=== PATIENT | male | born 1955 | race Asian ===

== ENCOUNTER 2016-06-03 23:39 | Inpatient (IN) | payer MEDICAID ==
[~2016-06-03] VITALS: Ht 167.6 cm; Wt 80.4 kg
[2016-06-03 23:40] VITALS: BP 162/72; PULSE 60; RESP 16; TEMP 97.8; O2SAT 98
--- NOTE | 2016-06-03 23:40 | NUR ---
ER Dr. Aguilar at bedside examining patient.
--- NOTE | 2016-06-03 23:40 | NUR ---
Placed in room 3 . Placed on registered nurse cardiac telemetry, blood pressure machine and pulse oximeter. To gown for exam. Side rails up. Report given to Joan DHILLON.
--- NOTE | 2016-06-03 23:45 | NUR ---
Pt brought in by in stable condition. Per , pt has been c/o dizziness since 1999 and told her he was going to bed. Per , pt was asleep and fell off the bed. Pt present very lethargic but able to answer questions appropriately. +n -v/d -chest pain -sob. Placed pt on cardiac rehab nurse. No acute distress noted at this time, will continue to monitor
[2016-06-04] MEDS ORDERED: ONDANSETRON HCL 4 MG/2 ML VIAL IVP ONE
[2016-06-04] MEDS ORDERED: MECLIZINE HCL 25 MG TABLET (ANITVERT) PO ONE
--- NOTE | 2016-06-04 00:17 | NUR ---
Spoke w/pt son and he stated that pt has been "really out of it". Pt's son stated that he noticed left sided facial droop. I assess neuro checks and pt's neuro is intact. Dr. Aguilar made aware and no new orders at this time.
[2016-06-04 00:21] LABS: BASOPHILS % (AUTO) 0.2 % (0.0-2.0); EOSINOPHILS # (AUTO) 0.3 K/uL (0.0-0.4); HEMATOCRIT 40.7 % (36-54); HEMOGLOBIN 13.8 g/dL (14.0-18.0); LYMPHOCYTES # (AUTO) 4.1 K/uL (1.0-5.5); LYMPHOCYTES % (AUTO) 36.8 % (20.5-51.5); MEAN CORPUSCULAR HEMOGLOBIN 29 pg (27-31); MEAN CORPUSCULAR HGB CONC 34 % (32-36); MEAN CORPUSCULAR VOLUME 87 fL (79.0-98.0); MONOCYTES % (AUTO) 9.4 % (1.7-9.3); NEUTROPHILS # (AUTO) 5.7 K/uL (1.8-7.7); NEUTROPHILS % (AUTO) 50.6 % (40.0-70.0); PLATELET COUNT (AUTO) 172 K/uL (130-430); RED BLOOD CELL COUNT(AUTO) 4.71 MIL/uL (4.2-6.2); RED CELL DISTRIBUTION WIDTH 12.4 % (9.0-15.0); WHITE BLOOD COUNT (AUTO) 11.1 K/uL (4.8-10.8)
[2016-06-04 00:23] LABS: PROTHROMBIN TIME 10.8 SECS (9.5-12.5)
[2016-06-04 00:27] LABS: ANION GAP 8 (5-15); CALCIUM 8.8 mg/dL (8.4-11.0); CHLORIDE 102 mmol/L (98-107); CREATININE 1.06 mg/dL (0.55-1.30); GFR AFRICAN AMERICAN 91 mL/min (>90); GLUCOSE 373 mg/dL (70-99); SODIUM SERUM 140 mmol/L (136-145); UREA NITROGEN, BLOOD 9 mg/dL (8-21)
[2016-06-04 00:32] LABS: ALANINE AMINOTRANSFERASE 40 U/L (12-78); ALBUMIN 3.4 g/dL (3.4-4.8); ASPARTATE AMINOTRANSFERASE 24 U/L (10-37); TOTAL BILIRUBIN 0.2 mg/dL (0.0-1.0)
[2016-06-04 00:43] LABS: LIPASE 177 U/L (73-393)
[2016-06-04] MEDS ORDERED: NACL 0.9% 1,000 ML IV ONE ×2 (00:45→02:15)
[2016-06-04] MEDS ORDERED: INSULIN REGULAR, HUMAN 10 UNITS/0.1 ML INJ IVP ONE ×2 (01:00→02:15)
[2016-06-04 01:09] LABS: BILIRUBIN,URINE NEGATIVE (NEGATIVE); CLARITY/URINE CLEAR (CLEAR); COLOR,URINE YELLOW (YELLOW); GLUCOSE,URINE 3+ (NEGATIVE); KETONES,URINE NEGATIVE (NEGATIVE); LEUKOCYTE ESTERASE ,URINE NEGATIVE (NEGATIVE); NITRITE, URINE NEGATIVE (NEGATIVE); PH,URINE 6.5 (5.0-8.0); PROTEIN URINE TRACE (NEGATIVE); UROBILINOGEN,URINE 0.2 (0.2-1.0)
[2016-06-04 01:27] LABS: BLOOD, URINE TRACE (NEGATIVE)
[2016-06-04 01:29] LABS: BACTERIA,URINE RARE /HPF (None Seen); MUCUS,URINE None Seen /LPF (None Seen); RBC,URINE 0-3 /HPF (0-3); WBC,URINE 0-3 /HPF (0-3)
--- NOTE | 2016-06-04 03:21 | NUR ---
Assisted pt on ambulating to restroom. Pt able to ambulate w/ a steady gait but leans towards the left. Dr. Aguilar observed pt ambulating to the restroom. Pt is more alert and awake now.
--- NOTE | 2016-06-04 03:29 | NUR ---
Dr. Aguilar at bedside following-up w/ patient.
--- NOTE | 2016-06-04 03:30 | NUR ---
Pt is obtunded and only opens eyes to painful stimulation. VSS. Will continue to monitor via air sampling and monitoring.
--- NOTE | 2016-06-04 03:30 | NUR ---
Endorsed pt to ALE[facility] Elena
--- NOTE | 2016-06-04 04:30 | NUR ---
Pt is still obtunded and arousable to painful stimuli. VSS. Will continue to monitor via monitoring analyst.
[2016-06-04 06:00] LABS: BARBITURATE, URINE NEGATIVE (NEG <=200); BENZODIAZEPINE, URINE NEGATIVE (NEG <=150); CANNABINOID, URINE NEGATIVE (NEG <=50); COCAINE, URINE NEGATIVE (NEG <=150); METHAMPHETAMINES SCREEN,URINE NEGATIVE (NEG <=500); OPIATE, URINE NEGATIVE (NEG <=100); PHENCYCLIDINE SCREEN,URINE NEGATIVE (NEG <=25); UR TRICYCLIC ANTIDEPRESSANTS NEGATIVE (NEG <=300); URINE AMPHETAMINE NEGATIVE (NEG <=500); URINE METHADONE NEGATIVE (NEG <=200); URINE OXYCODONE SCREEN NEGATIVE (NEG <=100); URINE PROPOXYPHENE SCREEN NEGATIVE (NEG <=300)
[2016-06-04 06:01] LABS: ABG TOTAL HEMOGLOBIN 13.8 G/dL (12.0-18.0); BLOOD GAS BASE EXCESS -0.4 mmol/L (-3.0-3.0); BLOOD GAS COHb% 3.9 % (0.5-1.5); BLOOD GAS PH 7.406 (7.350-7.450); BLOOD O2Hb% 92.4 % (94.0-97.0)
[2016-06-04 06:02] LABS: BLOOD GAS HHB 3.5 % (0.0-6.0)
[2016-06-04] MEDS ORDERED: ASPIRIN 81 MG TAB.CHEW PO ONE (06:30)
--- NOTE | 2016-06-04 06:45 | NUR ---
Pt woke up and was able to ambulate to bathroom. Pt still has unsteady gait while favoring the left side. Pt is slightly slurring his speech which family states is unusual. Pt also stated that his throat felt tight. Neck sounds revealed slight wheeze. Dr. Aguilar made aware.
[2016-06-04] MEDS: D5/0.45 NS 1,000 ML IV SCH (07:00)
--- NOTE | 2016-06-04 07:05 | NUR ---
Patient will be admitted to care of Dr. Martines. Admitted to Telemetry unit. Will go to room 105A. Summary report printed. Report given to admitting RN.
--- NOTE | 2016-06-04 07:11 | NUR ---
Admission Note Received patient from ER with diagnosis of possible CVA. Initial Plan of Care discussed with family,verbalized understanding. Patient Oriented to room, call light, pain management and safety.
[2016-06-04 07:15] VITALS: BP 140/66; PULSE 55; RESP 20; TEMP 97; O2SAT 95
[2016-06-04] MEDS ORDERED: INSULIN REGULAR, HUMAN 100 UNITS/ML, 10 ML VIAL (novoLIN R) SUBCUT PRN (07:15)
--- NOTE | 2016-06-04 07:16 | NUR ---
CALLED NEUROLOGY CONSULT TO DR DEIRDRE De Leon, RE: CVA. SPOKE TO HARINI
[2016-06-04] MEDS ORDERED: ROSU10TA PO (07:31)
[2016-06-04] MEDS ORDERED: GLIP5TAB13 PO (07:31)
[2016-06-04] MEDS ORDERED: GLU500 PO (07:32)
--- NOTE | 2016-06-04 07:45 | NUR ---
assessment notes rec patient from er accompanied by family with a c/o fall. ambulated from the [facility] to his assigned bed with min assists and olivier well. awake, alert with a heplock on the left ac and olivier well. no infiltration noted. resp easy and unlabored. no acute distress. denies any chest pain. bed in low position and siderails up and locked. call light within reached and knows when to call for assistance.
[2016-06-04] MEDS ORDERED: FLU VACC QS 2016-17(36MOS+)/PF 0.5 ML/SYR SYRINGE I.M. PRN (08:00)
--- NOTE | 2016-06-04 08:05 | NUR ---
NEURO CONSULT Dr. Sudarshan Georges here and informed of consult for Corinna Brown.
[2016-06-04 08:10] LABS: CHOLESTEROL 121 mg/dL (<200); HDL CHOLESTEROL 26 mg/dL (>45); LDL CHOLESTEROL 64 mg/dL (<100); TRIGLYCERIDES 272 mg/dL (30-150)
--- NOTE | 2016-06-04 08:30 | NUR ---
rounds seen by dr faith and dr pedro singh. no acute distress noted.
[2016-06-04] MEDS ORDERED: DEXTROSE 50%-WATER 50 ML DISP.SYRIN IVP PRN ×2 (08:45)
[2016-06-04] MEDS ORDERED: GLUCOSE 15 GM GEL (in 37.5 GM TUBE) PO PRN ×2 (08:45)
[2016-06-04 09:21] LABS: FREE T4 (FREE THYROXINE) 0.8 ng/dL (0.6-1.6); THYROID STIMULATING HORMONE 1.15 uIu/mL (0.34-4.82)
--- NOTE | 2016-06-04 09:53 | NUR ---
[facility] Speech Therapist was called Rg: joyce mullins .
--- NOTE | 2016-06-04 10:44 | NUR ---
rounds up and walking on the hallway and olivier well with p.t with a walker and olivier well. no sob noted.
[2016-06-04] MEDS: ASPIRIN 81 MG TAB.CHEW PO SCH (11:44)
--- NOTE | 2016-06-04 12:50 | NUR ---
rounds pt's somewhat upset and wants to be moved to another hospital. dr faith was called and spoke with him and told him re patient's frustration.awaiting for dr pedro singh to call back.
--- NOTE | 2016-06-04 13:00 | NUR ---
CALLED ATTENDING MD DR INFANTE, RE: PT DESIRE TO TRANSFER TO [facility].
--- NOTE | 2016-06-04 13:11 | NUR ---
CALLED NEURO CONSULT DR GILMORE, RE: PT 'S REQUEST TO BE SEEN TODAY. SPOKE TO HARINI
--- NOTE | 2016-06-04 14:30 | NUR ---
rounds pt was taken to mri .
--- NOTE | 2016-06-04 14:32 | NUR ---
Social Service Note: SPRAYER HAND was called by pt's nurse; pt's family wants pt to be transferred to another hospital. SPRAYER HAND met with pt's and son at bedside; pt's states that she wants pt to be moved to [facility]; SPRAYER HAND explained that unless pt had a need for a higher level of care that the transfer would be lateral and pt's family would need to locate an accepting physician. Pt's is upset that pt has not yet been seen by the neurologist; SPRAYER HAND alerted pt's that the consult had been called to the physician. SPRAYER HAND will remain available for support and will follow up as needed.
--- NOTE | 2016-06-04 14:56 | NUR ---
S.T. CALLED UNIT AT 1252 TO CONFIRM THAT [employer]YW[employer] FOREMAN WILL BE IN THIS PM FOR EVAL. NRSG ACKNOWLEDGED. SWALLOW EVAL ATTEMPTED. PT LEFT FOR MRI. CALLED MRI, TECH STATED MRI JUST STARTED. WILL TAKE NO LESS THAN AN HOUR. S.T. WILL FOLLOW TOMORROW AM. NURSE JESSICA AWARE.
[2016-06-04] MEDS ORDERED: LORazepam 2 MG/ML VIAL IVP ONE (15:15)
[2016-06-04] MEDS ORDERED: LORazepam 2 MG/ML VIAL ONE (15:18)
--- NOTE | 2016-06-04 15:30 | NUR ---
rounds pt back from mri via [place]. turned repositioned for comfort.
[2016-06-04] MEDS ORDERED: GADOPENTETATE DIMEGLUMINE 15 ML VIAL IV ONE (16:28)
--- NOTE | 2016-06-04 16:30 | NUR ---
rounds pt seen by dr singh and explained result of mri to family in the room.
--- NOTE | 2016-06-04 17:56 | NUR ---
rounds pt tolerated the puree diet. no sob noted. family at bedside.
--- NOTE | 2016-06-04 18:30 | NUR ---
closing notes pt resting quietly. no acute distress noted. no weakness or neuro deficit noted. family at bedside. bed in low position and call light within reached. assisted to the br at intervals and refused to use a urinal.
[2016-06-04 19:30] VITALS: BP 152/71; PULSE 62; RESP 17; TEMP 97; O2SAT 97
--- NOTE | 2016-06-04 19:30 | NUR ---
INITIAL NOTE PT. RECEIVED AAOX3, VERY LETHARGIC AND SLEEPY AT THIS TIME. SOMEWHAT DIFFICULT TO AROUSE, BUT FOLLOWS COMMANDS, THEN EASILY FALLS BACK TO SLEEP. FAMILY IS AT THE BEDSIDE, THEY STATE HE IS FAR MORE ALERT TODAY THAN HE WAS YESTERDAY. VSS, NO S/S OF SOB OR DISTRESS AT THIS TIME. IV ACCESS NOTED TO LEFT AC, NO REDNESS OR SWELLING AT THE SITE. IV FLUIDS INFUSING WELL ORDERED. PER, FAMILY PT. CAN AMBULATE WITH ASSISTANCE. ENCOURAGED TO CALL FOR HELP. VERBALIZED UNDERSTANDING. DUE TO PT. LETHARGIC STATE, PLAN OF CARE WAS DISCUSSED WITH PT. WHO VERBALIZES UNDERSTANDING. WILL CONTINUE TO CLOSELY MONITOR THE PT AND FOLLOW UP WITH PLAN OF CARE AND ANY RELATIVE EDUCATION. SAFETY AND FALL PRECAUTIONS IN PLACE. CALL LIGHT IN REACH, BED ALARM ON, SIDE RAILS UP X2.
--- NOTE | 2016-06-04 22:00 | NUR ---
ROUNDS PT. RESTING IN BED WITH EYES CLOSED. CHEST RISE AND FALL NOTED. NO S/S OF SOB OR DISTRESS. NO FACIAL GRIMACING INDICATING PAIN. FAMILY REMAINS AT THE BEDSIDE. IV FLUIDS ARE INFUSING WELL. WILL CONTINUE TO MONITOR FOR ANY CHANGES. SAFETY AND FALL PRECAUTIONS IN PLACE. CALL LIGHT IN REACH, ALARM ON.
--- NOTE | 2016-06-05 00:04 | NUR ---
ROUNDS ASSISTED PT TO RESTROOM. ABLE TO AMBULATE WITH STEADY GAIT. PT. IS ALERT AT THIS TIME. NO S/S OF SOB OR DISTRESS. PT. DENIES PAIN. ASSISTED BACK TO BED AND IN A COMFORTABLE POSITION. IV FLUIDS CONTINUE TO INFUSE WELL. SLEEPING AT THE BEDSIDE. WILL CONTINUE TO MONITOR FOR CHANGES. SAFETY AND FALL PRECAUTIONS IN PLACE. CALL LIGHT IN REACH. ALARM ON.
[2016-06-05 00:29] VITALS: BP 158/87; PULSE 59; RESP 16; TEMP 97.7; O2SAT 96
[2016-06-05 01:45] LABS: BASOPHILS % (AUTO) 0.4 % (0.0-2.0); EOSINOPHILS # (AUTO) 0.3 K/uL (0.0-0.4); EOSINOPHILS % (AUTO) 3.1 % (0.0-4.0); HEMATOCRIT 41.3 % (36-54); HEMOGLOBIN 14.2 g/dL (14.0-18.0); LYMPHOCYTES # (AUTO) 3.5 K/uL (1.0-5.5); LYMPHOCYTES % (AUTO) 32.3 % (20.5-51.5); MEAN CORPUSCULAR HEMOGLOBIN 29 pg (27-31); MEAN CORPUSCULAR HGB CONC 34 % (32-36); MEAN CORPUSCULAR VOLUME 85 fL (79.0-98.0); MONOCYTES # (AUTO) 0.9 K/uL (0.0-1.0); MONOCYTES % (AUTO) 8.5 % (1.7-9.3); NEUTROPHILS % (AUTO) 55.7 % (40.0-70.0); PLATELET COUNT (AUTO) 164 K/uL (130-430); RED BLOOD CELL COUNT(AUTO) 4.84 MIL/uL (4.2-6.2); RED CELL DISTRIBUTION WIDTH 12.1 % (9.0-15.0); WHITE BLOOD COUNT (AUTO) 10.7 K/uL (4.8-10.8)
[2016-06-05 01:54] LABS: CALCIUM 8.3 mg/dL (8.4-11.0); CREATININE 0.86 mg/dL (0.55-1.30); POTASSIUM 3.6 mmol/L (3.5-5.1)
--- NOTE | 2016-06-05 02:05 | NUR ---
rounds pt. resting in bed with eyes closed. chest rise and fall noted. no s/s of sob or distress. no facial grimacing indicating pain. iv fluids infusing well. at bedside, will continue to monitor. safety and fall precautions in place, call light in reach.
[2016-06-05] MEDS: D5/0.45 NS 1,000 ML IV SCH (03:33)
[2016-06-05 04:18] VITALS: BP 150/64; PULSE 64; RESP 18; TEMP 98.3; O2SAT 97
--- NOTE | 2016-06-05 06:39 | NUR ---
CLOSING NOTE PT. RESTING IN BED WITH EYES CLOSED. MORNING ACCUCHECK DONE, BLOOD SUGAR WNL, NO COVERAGE NEEDED. REMAINS AT THE BEDSIDE WITH THE PT. ALL NECESSARY NEEDS WERE MET, SAFETY AND FALL PRECAUTIONS WERE MAINTAINED. NO NEUROLOGICAL DEFICITS WERE NOTED. WILL ENDORSE CARE TO AM NURSE. CALL LIGHT IN REACH, ALARM ON.
[2016-06-05 07:55] VITALS: BP 147/74; PULSE 57; RESP 18; TEMP 97.1; O2SAT 96
--- NOTE | 2016-06-05 08:00 | NUR ---
OPENING NOTES RECEIVED PT IN BED, PT IS AOX4, DENIES PAIN, NO SOB, NO DISTRESS, IV SITE FLUSHED, SET-UP FOR BREAKFAST. CALLIGHT IN REACH. BED IN LOW PSOSITON. INSTRUCTED TO CALL FOR ASSISTANCE.
--- NOTE | 2016-06-05 08:02 | NUR ---
OPENING NOTES RECEIVED PT IN BED, NO C/O PAIN, PT IS AOX2 NAME,PLACE, NO SOB NO DISTRESS, PICC ON THE LEFT UA NOTED, IVF TKO, PERMACATH ON R UPPER CHEST CLEAN AND DRY, CALLIGHT IN REACH, BED IN LOW POSITION. Addendum: 06/05/16 at 0805 by Vicente Trevino RN PLS. DISREGARD THIS PT'S NOTES. THIS BELONGS TO ANOTHER PATIENT.
[2016-06-05] MEDS: ASPIRIN 81 MG TAB.CHEW PO SCH (08:13)
[2016-06-05] MEDS ORDERED: CLOPIDOGREL BISULFATE 75 MG TABLET PO SCH (09:00)
--- NOTE | 2016-06-05 10:00 | NUR ---
PHYSICAL THERAPY CO-SIGN The Physical Therapy Progress Notes documented by Quad Stayer have been reviewed. Reviewed/Co-Signed by: Laura Wilks, PT Documentation Done by: Joss Gonzalez PTA I concur with the documentation of this BINDER CASER. Plan: continue PT as per plan of care. Addendum: 06/05/16 at 1107 by Laura Wilks PT Amended: Links added.
--- NOTE | 2016-06-05 10:00 | NUR ---
PT OUT OF BED, WITH P.T.
--- NOTE | 2016-06-05 11:46 | NUR ---
S.T. SWALLOW EVAL COMPLETED. PT PRESENTS W/ ML ORAL DYSPHAGIA W/ ML PROLONGED MASTICATION. NO S/S OF ASPIRATION. REC: [facility] SOFT CHOPPED DIET. NURSE ARLET NOTIFIED. [id number] CI G8997 CI G8998 CI NOMS LEVEL 6
--- NOTE | 2016-06-05 12:00 | NUR ---
NOTES, PT IN BED, FAMILY AT BEDSIDE, BED AT LOW POSITION, CALL LIGHT IN REACH, IV FLUID INFUSING WELL. IV ACCESS DRY AND INTACT. INSTRUCTED TO CALL FOR ASSIST.
[2016-06-05 12:24] VITALS: BP 147/71; PULSE 58; RESP 17; TEMP 97.8; O2SAT 98
[2016-06-05] MEDS ORDERED: CLOP75TA2 PO ×2 (15:25→16:17)
[2016-06-05] MEDS ORDERED: ASA81 PO (15:25)
[2016-06-05] MEDS ORDERED: LOSA50TA20 PO (15:25)
[2016-06-05 15:47] VITALS: BP 136/78; PULSE 71; RESP 18; TEMP 98; O2SAT 97
--- NOTE | 2016-06-05 16:00 | NUR ---
NOTES, PT IN BED, FAMILY AT BEDSIDE, BED AT LOW POSITION, CALL LIGHT IN REACH, IV FLUID INFUSING WELL. IV ACCESS DRY AND INTACT. INSTRUCTED TO CALL FOR ASSIST. PT AWARE THAT HE IS GOING HOME, TOLD PT AND FAMILY THAT DC INSTRUCTIONS ARE BEING PREPARED. WILL DISCHARGE LISA.
[2016-06-05 16:02] VITALS: BP 136/78; PULSE 71; RESP 18; TEMP 98; O2SAT 97
--- NOTE | 2016-06-05 16:45 | NUR ---
D/C Patient Patient given medication reconciliation form and D/C instructions. Exit Care provided. Patient verbalized understanding. MD discussed with patient the results and treatment provided. Ambulatory with steady gait for discharge to home. Patient in stable condition, ID band removed. IV catheter removed, intact and dressing applied, no active bleeding. Rx of given. Patient educated on pain management. All belongings sent with patient.
== END 2016-06-05 16:45 | disposition home or self-care (01) | DRG 45 ==
LOC: SED 23:39 → STU 06-04 06:31
PROVIDERS: ADMIT Internal Medicine; ATTEND Internal Medicine
DX: I63.9 Cerebral infarction, unspecified (principal); E11.65 Type 2 diabetes mellitus with hyperglycemia; I10 Essential (primary) hypertension; R29.810 Facial weakness; E78.5 Hyperlipidemia, unspecified; F17.200 Nicotine dependence, unspecified, uncomplicated; W06.XXXA Fall from bed, initial encounter; Y93.89 Activity, other specified; Y92.89 Other specified places as the place of occurrence of the external cause; Y99.8 Other external cause status
CPT/HCPCS: 36415; 36600; 70450-TC; 70553; 71010; 80048; 80053; 80061; 80307; 81000-TC; 82140-TC; 82550-TC; 82803-TC; 82962; 83690-TC; 84439; 84443-TC; 84484; 85025; 85610-TC; 92610-GN; 93005; 93306; 93880; 96361; 96374; 96375; 96376; 97116-GP; 97530-GP; 99285; A9579; G0482; J1815; J2060; J2405; J7030; J8597